=== PATIENT | female | born 1970 | race Two or more races ===

== ENCOUNTER 2017-12-04 08:50 | Day surgery (SDC) | payer OTHER ==
[2017-12-04] MEDS ORDERED: NAPROXEN500 MG PO (16:00)
[2017-12-04] MEDS ORDERED: CIPRO500 MG PO (16:00)
== END 2017-12-04 18:45 | disposition home or self-care (01) ==
LOC: CIR.AMB 08:50
DX: N93.8 Other specified abnormal uterine and vaginal bleeding (principal)

== ENCOUNTER 2022-01-02 18:31 | Emergency (ER) | payer OTHER ==
[~2022-01-02] VITALS: Ht 162.6 cm; Wt 63.5 kg
[~2022-01-02 18:31] MED LIST: CIPRO500 MG PO; COLACE100 MG PO; DICLOFENAC POTA50 MG PO; NAPROXEN500 MG PO; TYLENOL-CODEINE1 TA1 PO
[2022-01-02] MEDS ORDERED: ROSUVASTATIN CA10 MG PO (19:10)
== END 2022-01-02 21:29 | disposition home or self-care (01) ==
LOC: ER 18:31
DX: J06.9 Acute upper respiratory infection, unspecified (principal); Z20.828 Contact with and (suspected) exposure to other viral communicable diseases